=== PATIENT | female | born 1995 | race American Indian/Alaskan Native ===

== ENCOUNTER 2018-01-14 19:08 | Emergency (ER) | payer OTHER ==
[~2018-01-14] VITALS: Ht 149.9 cm; Wt 51.7 kg
== END 2018-01-14 21:58 | disposition home or self-care (01) ==
LOC: ER 19:08
DX: O46.8X1 Other antepartum hemorrhage, first trimester (principal); O34.81 Maternal care for other abnormalities of pelvic organs, first trimester; N83.291 Other ovarian cyst, right side; Z34.01 Encounter for supervision of normal first pregnancy, first trimester

== ENCOUNTER 2018-01-18 08:46 | Day surgery (SDC) | payer OTHER ==
[~2018-01-18] VITALS: Ht 149.9 cm; Wt 49.0 kg
== END 2018-01-18 14:30 | disposition home or self-care (01) ==
LOC: ER 08:46 → CIR.AMB 10:13
DX: O03.4 Incomplete spontaneous abortion without complication (principal)

== ENCOUNTER 2021-10-16 17:56 | Emergency (ER) | payer OTHER ==
[~2021-10-16] VITALS: Ht 149.9 cm; Wt 55.3 kg
[2021-10-16] MEDS ORDERED: PRENATAL + DHA1 EAC1 PO (18:20)
[2021-10-16] MEDS ORDERED: LIPITOR20 MG PO (18:20)
== END 2021-10-16 21:42 | disposition home or self-care (01) ==
LOC: ER 17:56
DX: O20.9 Hemorrhage in early pregnancy, unspecified (principal); Z3A.01 Less than 8 weeks gestation of pregnancy

== ENCOUNTER 2022-08-20 18:37 | Emergency (ER) | payer OTHER ==
[~2022-08-20] VITALS: Ht 149.9 cm; Wt 56.2 kg
[~2022-08-20 18:37] MED LIST: LIPITOR20 MG PO; PRENATAL + DHA1 EAC1 PO
[2022-08-21] MEDS ORDERED: DICLOFENAC POTA50 MG PO (03:27)
== END 2022-08-21 03:42 | disposition home or self-care (01) ==
LOC: ER 18:37
DX: N64.3 Galactorrhea not associated with childbirth (principal); N83.202 Unspecified ovarian cyst, left side; N83.201 Unspecified ovarian cyst, right side